=== PATIENT | female | born 1935 | race Caucasian/White ===

== ENCOUNTER → 2025-05-24 | Outpatient (CLI) | payer MEDICARE ==
--- NOTE | 2025-05-24 07:48 | USB ---
Reason for Exam: Clinical finding. Patient History: Menarche at age 12. First Full-Term at age 23. Postmenopausal. Breast cancer, age 61. Estrogen for 7 years from age 53 until age 60. Progesterone for 7 years from age 53 until age 60. 1995, Lumpectomy on the Right side. 1991, Benign Excisional Biopsy on the left side. 1996, Radiation Therapy on the right side. Technique: Method: Targeted. Prior Study Comparison: 10/03/2007 Bilateral Diagnostic Mammogram, [facility]. 08/07/2009 Bilateral Diagnostic Mammogram, [facility]. 06/29/2011 Bilateral Diagnostic Mammogram, [facility]. Findings: The lower outer quadrant of the left breast, the axilla of the left breast and the retroareolar of the left breast were scanned. Technique utilized:US breast limited LT Image; Ultrasound imaging of: Area of concern, retroareolar region and axilla. No evidence for organizing fluid collection or mass. No finding to correlate with patient's pain. Overall Assessment: Negative, BI-RAD 1 Management: Screening Mammogram of both breasts in 1 year. A clinical breast exam by your physician is recommended on an annual basis and results should be correlated with mammographic findings. This exam should not preclude additional follow-up of suspicious palpable abnormalities. Results were given to the patient verbally at the time of exam. [facility], , 05/24/2025 7:45 AM. Electronically signed and approved by: Nicolás Dominguez DO
== END | disposition home or self-care (01) ==
LOC: RADUSWWP 07:06
PROVIDERS: ATTEND Internal Medicine
DX: N64.4 Mastodynia (principal); Z78.0 Asymptomatic menopausal state; Z85.3 Personal history of malignant neoplasm of breast

== ENCOUNTER → 2025-06-03 | Outpatient (CLI) | payer MEDICARE ==
--- NOTE | 2025-06-03 14:41 | CT ---
EXAMINATION TYPE: CT chest wo con DATE OF EXAM: 06/03/2025 2:24 PM COMPARISON: None. 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 Reconstructed images are reviewed on [employer] computer in the coronal plane. Contrast used: mL of , (none if empty) Oral contrast used: (none if empty) CT DLP: 246.9 mGycm, Automated exposure control for dose reduction was used. FINDINGS: Portion of the thyroid visualized is normal. No suspicious lung nodules or focal infiltrates are present. 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 No enlarged mediastinal or hilar adenopathy is evident. The ascending aorta diameter at the level o f the main pulmonary artery is 3.5 cm. The main pulmonary artery diameter at the bifurcation is 2.5 cm. No significant coronary artery calcifications. Limited CT sections are obtained through the upper abdomen. Abdomen is essentially unremarkable. IMPRESSION: 1. Retroesophageal right subclavian artery. [facility], , 06/03/2025 2:39 PM
== END | disposition home or self-care (01) ==
LOC: RADCTMAIN 14:00
PROVIDERS: ATTEND Internal Medicine
DX: R07.81 Pleurodynia (principal)
CPT/HCPCS: 71250